=== PATIENT | female | born 1970 | race Hispanic/Latino ===

== ENCOUNTER 2017-10-22 22:41 | Emergency (ER) | payer SELFPAY ==
[2017-10-23] MEDS ORDERED: MOTRIN PO ONE (01:08)
[2017-10-23] MEDS ORDERED: ULTRAM PO ONE (04:33)
--- NOTE | 2017-10-23 04:38 | Emergency Department Report ---
ED ENT HPI - General Chief complaint: Dental/Oral Stated complaint: TOOTHACHE Time Seen by Provider: 10/23/17 04:33 Source: patient Mode of arrival: Ambulatory Limitations: No Limitations - History of Present Illness Initial comments: 47-year-old female comes in complaining of a toothache in her right upper jaw times one month and reports is getting worse. Patient denies any fever chills. She feels that she needs antibiotic. Patient has had no discharge coming from the tooth no swelling of the jaw. No past medical history. MD complaint: tooth pain -: month(s) (1) Location: tooth # (3) Severity scale (0 -10): 10 Quality: stabbing, aching Consistency: constant Improves with: none Worsens with: eating Context- Dental: poor dental care Associated Symptoms: toothache. denies: fever, cough, gum swelling, pain with swallowing, sore throat - Related Data Previous Rx's Medication Instructions Recorded Last Taken Type Clindamycin [Clindamycin CAP] 300 mg PO Q8H #30 cap 10/23/17 Unknown Rx Ibuprofen [Motrin 800 MG tab] 800 mg PO Q8HR PRN #30 tablet 10/23/17 Unknown Rx traMADol [Ultram 50 MG tab] 50 mg PO Q6HR PRN #12 tablet 10/23/17 Unknown Rx Allergies Allergy/AdvReac Type Severity Reaction Status Date / Time Penicillins Allergy Hives Verified 10/23/17 01:07 ED Dental HPI - General Chief complaint: Dental/Oral Stated complaint: TOOTHACHE Time Seen by Provider: 10/23/17 04:33 Source: patient Mode of arrival: Ambulatory Limitations: No Limitations - Related Data Previous Rx's Medication Instructions Recorded Last Taken Type Clindamycin [Clindamycin CAP] 300 mg PO Q8H #30 cap 10/23/17 Unknown Rx Ibuprofen [Motrin 800 MG tab] 800 mg PO Q8HR PRN #30 tablet 10/23/17 Unknown Rx traMADol [Ultram 50 MG tab] 50 mg PO Q6HR PRN #12 tablet 10/23/17 Unknown Rx Allergies Allergy/AdvReac Type Severity Reaction Status Date / Time Penicillins Allergy Hives Verified 10/23/17 01:07 ED Review of Systems ROS: Stated complaint: TOOTHACHE Other details as noted in HPI ENT: dental pain ED Past Medical Hx - Past Medical History Previous Medical History?: No - Surgical History Past Surgical History?: Yes Additional Surgical History: Tonsilectomy. Tubal Ligation - Social History Smoking Status: Current Every Day Smoker Substance Use Type: None - Medications Home Medications: Home Medications Medication Instructions Recorded Confirmed Last Taken Type Clindamycin [Clindamycin CAP] 300 mg PO Q8H #30 cap 10/23/17 Unknown Rx Ibuprofen [Motrin 800 MG tab] 800 mg PO Q8HR PRN #30 tablet 10/23/17 Unknown Rx traMADol [Ultram 50 MG tab] 50 mg PO Q6HR PRN #12 tablet 10/23/17 Unknown Rx ED Physical Exam - General Limitations: No Limitations General appearance: alert, in no apparent distress - Head Head exam: Present: atraumatic, normocephalic - ENT ENT exam: Present: mucous membranes moist - Expanded ENT Exam Expanded Teeth exam: Present: dental tenderness # (3) ED Course Vital Signs 10/22/17 23:51 Temperature 97.9 F Pulse Rate 60 Respiratory 18 Rate Blood Pressure 138/82 O2 Sat by Pulse 99 Oximetry Critical care attestation.: If time is entered above; I have spent that time in minutes in the direct care of this critically ill patient, excluding procedure time. ED Disposition Clinical Impression: Toothache Disposition: [id number] TO HOME OR SELFCARE Is pt being admited?: No Does the pt Need Aspirin: No Condition: Stable Instructions: Toothache (ED) Additional Instructions: Complete antibiotics as prescribed. Pain medication as needed. Please follow up with a dentist I have given the several handouts. Prescriptions: Clindamycin [Clindamycin CAP] 300 mg PO Q8H #30 cap Ibuprofen [Motrin 800 MG tab] 800 mg PO Q8HR PRN #30 tablet PRN Reason: Pain , Severe (7-10) traMADol [Ultram 50 MG tab] 50 mg PO Q6HR PRN #12 tablet PRN Reason: Pain , Severe (7-10) Referrals: PRIMARY CARE,MD [Primary Care Provider] - 3-5 Days [facility] [Outside] - 3-5 Days [facility] [Outside] - 3-5 Days Forms: Work/School Release Form(ED)
[2017-10-23 05:23] VITALS: BP 136/80
== END 2017-10-23 04:50 | disposition home or self-care (01) ==
LOC: ED 22:41
DX: K08.89 Other specified disorders of teeth and supporting structures (principal); F17.200 Nicotine dependence, unspecified, uncomplicated; Z90.49 Acquired absence of other specified parts of digestive tract; Z98.51 Tubal ligation status; Z88.0 Allergy status to penicillin
CPT/HCPCS: 99282

== ENCOUNTER 2018-01-02 23:46 | Inpatient (IN) | payer OTHER ==
[2018-01-03 00:23] LABS: Basophils # (Auto) 0.1 K/mm3 (0.0-0.1); Basophils % (Auto) 0.7 % (0.0-1.8); Eosinophils % (Auto) 0.1 % (0.0-4.3); Hematocrit 45.6 % (30.3-42.9); Hemoglobin 15.9 gm/dl (10.1-14.3); Lymphocytes # (Auto) 1.3 K/mm3 (1.2-5.4); Lymphocytes % (Auto) 10.5 % (13.4-35.0); Mean Corpuscular HGB Conc 35 % (30-34); Mean Corpuscular Hemoglobin 31 pg (28-32); Mean Corpuscular Volume 90 fl (79-97); Monocytes # (Auto) 0.4 K/mm3 (0.0-0.8); Monocytes % (Auto) 2.9 % (0.0-7.3); Platelet Count 200 K/mm3 (140-440); Red Blood Count 5.08 M/mm3 (3.65-5.03); Red Cell Distribution Width 13.6 % (13.2-15.2)
[2018-01-03 00:45] LABS: Alanine Aminotransferase 25 units/L (7-56); Albumin 4.4 g/dL (3.9-5); BUN/Creatinine Ratio 19; Blood Urea Nitrogen 13 mg/dL (7-17); Calcium 9.5 mg/dL (8.4-10.2); Hemolysis Index 7
[2018-01-03 01:21] LABS: Bilirubin,Urine NEG (Negative); Blood,Urine NEG (Negative); Color,Urine Yellow (Yellow); Mucus,Urine 1+ /HPF; Urobilinogen,Urine < 2.0 mg/dL (<2.0)
--- NOTE | 2018-01-03 01:42 | Emergency Department Report ---
ED Abdominal Pain HPI - General Chief Complaint: Abdominal Pain Stated Complaint: N/V ABD PAIN Time Seen by Provider: 01/03/18 01:37 Source: patient, family Mode of arrival: Ambulatory Limitations: No Limitations - History of Present Illness Initial Comments: Patient here report abdominal pain with nausea and vomiting that started today. She said the pain is located around her navel and its 10 out of 10 and achy. She reports chilled with that she did not take her temperature. Last menstrual period was 10/16/2017. Last bowel movement was this morning and she said that was normal. She denies any alcohol use. Denies eating any food that abnormal. She has a history of tonsillectomy and tubal ligation. Denies any vaginal bleeding or discharge. Denies any back pain, shortness of breath or chest pain. MD Complaint: abdominal pain -: This morning Location: periumbilical Radiation: none Migration to: no migration Severity: severe Severity scale (0 -10): 10 Quality: cramping, stabbing Consistency: constant Improves With: nothing Worsens With: nothing Context: other (unknown) Associated Symptoms: nausea, vomiting, chills. denies: diarrhea, fever, constipation, dysuria, hematemesis, hematochezia, melena, hematuria, anorexia, syncope Treatments Prior to Arrival: other (none) - Related Data LMP Date: 10/16/17 Previous Rx's Medication Instructions Recorded Last Taken Type Clindamycin [Clindamycin CAP] 300 mg PO Q8H #30 cap 10/23/17 Unknown Rx Ibuprofen [Motrin 800 MG tab] 800 mg PO Q8HR PRN #30 tablet 10/23/17 Unknown Rx traMADol [Ultram 50 MG tab] 50 mg PO Q6HR PRN #12 tablet 10/23/17 Unknown Rx Dicyclomine [Bentyl] 40 mg PO QID 3 Days #12 tablet 01/03/18 Unknown Rx Famotidine [Pepcid] 40 mg PO QDAY 10 Days #10 tablet 01/03/18 Unknown Rx Ondansetron [Zofran Odt] 4 mg PO Q6H PRN #20 tab.rapdis 01/03/18 Unknown Rx Allergies Allergy/AdvReac Type Severity Reaction Status Date / Time Penicillins Allergy Hives Verified 10/23/17 01:07 ED Review of Systems ROS: Stated complaint: N/V ABD PAIN Other details as noted in HPI Constitutional: chills. denies: fever Eyes: denies: eye pain, eye discharge, vision change ENT: denies: ear pain, throat pain, congestion Respiratory: denies: cough, shortness of breath, SOB with exertion, SOB at rest , wheezing Cardiovascular: denies: chest pain, palpitations, dyspnea on exertion, edema, syncope Gastrointestinal: abdominal pain, nausea, vomiting. denies: diarrhea, constipation, hematemesis, melena, hematochezia Genitourinary: abnormal menses. denies: urgency, dysuria, frequency, hematuria , discharge, dyspareunia Musculoskeletal: denies: back pain, joint swelling, arthralgia, myalgia Skin: denies: rash, lesions Neurological: denies: headache, weakness, paresthesias, abnormal gait, vertigo Hematological/Lymphatic: denies: easy bleeding, easy bruising ED Past Medical Hx - Past Medical History Previous Medical History?: No - Surgical History Past Surgical History?: Yes Additional Surgical History: Tonsilectomy. Tubal Ligation - Social History Smoking Status: Current Every Day Smoker Substance Use Type: None - Medications Home Medications: Home Medications Medication Instructions Recorded Confirmed Last Taken Type Clindamycin [Clindamycin CAP] 300 mg PO Q8H #30 cap 10/23/17 Unknown Rx Ibuprofen [Motrin 800 MG tab] 800 mg PO Q8HR PRN #30 tablet 10/23/17 Unknown Rx traMADol [Ultram 50 MG tab] 50 mg PO Q6HR PRN #12 tablet 10/23/17 Unknown Rx Dicyclomine [Bentyl] 40 mg PO QID 3 Days #12 tablet 01/03/18 Unknown Rx Famotidine [Pepcid] 40 mg PO QDAY 10 Days #10 tablet 01/03/18 Unknown Rx Ondansetron [Zofran Odt] 4 mg PO Q6H PRN #20 tab.rapdis 01/03/18 Unknown Rx ED Physical Exam - General Limitations: No Limitations General appearance: alert, in no apparent distress - Head Head exam: Present: atraumatic, normocephalic, normal inspection - Eye Eye exam: Present: normal appearance, PERRL, EOMI Pupils: Present: normal accommodation - ENT ENT exam: Present: normal orophraynx, mucous membranes dry, TM's normal bilaterally, normal external ear exam. Absent: normal exam - Neck Neck exam: Present: normal inspection, full ROM, other (no C-spine tenderness). Absent: tenderness, lymphadenopathy - Respiratory Respiratory exam: Present: normal lung sounds bilaterally. Absent: respiratory distress, chest wall tenderness - Cardiovascular Cardiovascular Exam: Present: regular rate, normal rhythm, normal heart sounds. Absent: systolic murmur, diastolic murmur - GI/Abdominal GI/Abdominal exam: Present: soft, tenderness (periumbilical area), guarding, normal bowel sounds. Absent: distended, rebound, rigid, organomegaly, mass, bruit, pulsatile mass, hernia - Extremities Exam Extremities exam: Present: normal inspection, full ROM, normal capillary refill , other (No cce. + 2 pulses in all extremities, no neurovascular compromise). Absent: tenderness, pedal edema, joint swelling, calf tenderness - Back Exam Back exam: Present: normal inspection, full ROM, other (embolus about any difficulties). Absent: tenderness, CVA tenderness (R), CVA tenderness (L), muscle spasm, paraspinal tenderness, vertebral tenderness, rash noted - Neurological Exam Neurological exam: Present: alert, oriented X3, normal gait, reflexes normal. Absent: motor sensory deficit - Psychiatric Psychiatric exam: Present: anxious - Skin Skin exam: Present: warm, dry, intact, normal color. Absent: rash ED Course Vital Signs 01/02/18 01/03/18 23:49 00:59 Temperature 99.8 F H Pulse Rate 73 60 Respiratory 20 Rate Blood Pressure 177/115 Blood Pressure 141/81 [Right] O2 Sat by Pulse 100 Oximetry - Reevaluation(s) Reevaluation #1: 01/03/18 02:51 Given Toradol 30 mg IV, normal saline 1 L IV infusion, Zofran 8 mg IV and called all 5 mg IV. She is feeling a lot better and awaiting CT scan. She was also given Maalox 30 mL by mouth and lidocaine 15 mL by mouth and she says she is feeling a lot better. She did admit later on to smoking marijuana but that she did not smoke any yesterday. She says she is social user. The room did smelling marijuana. Patient states that she had this happen once before and she just has a sensitive stomach. Her temperature and white count is elevated so will go along with CT scan of the abdomen and pelvis with IV contrast Reevaluation #2: 01/03/18 03:34 Patient is stable and she says she is feeling better. Abdominal exam without any tenderness and no guarding or rebound. Awaiting CT scan. Reevaluation #3: 01/03/18 04:[address] Grimes who was the surgeon on-call regarding patient appendicitis and gallstones. She wants patient to be admitted via hospitalist to surgical floor. Patient ordered for D5 half normal saline at 1 25 mL an hour , Levaquin and Flagyl IV. She is to get morphine and Zofran. She still has minimal tenderness to her periumbilical area. Nausea has resolved. He should updated on CT scan results of diagnosis and plan for admission and she voiced understanding. Lactic acid, blood cultures ordered Reevaluation #4: 01/03/18 04:47 Dr. Moraes currently admitted inpatient - Consultations Consultation #1: 01/03/18 04:47 Dr. Grimes ED Medical Decision Making - Lab Data Result diagrams: 01/03/18 00:07 01/03/18 00:07 Lab Results 01/03/18 01/03/18 01/03/18 Range/Units 00:07 00:07 00:07 WBC 12.7 H (4.5-11.0) K/mm3 RBC 5.08 H (3.65-5.03) M/mm3 Hgb 15.9 H (10.1-14.3) gm/dl Hct 45.6 H (30.3-42.9) % MCV 90 (79-97) fl MCH 31 (28-32) pg MCHC 35 H (30-34) % RDW 13.6 (13.2-15.2) % Plt Count 200 (140-440) K/mm3 Lymph % (Auto) 10.5 L (13.4-35.0) % [place] % (Auto) 2.9 (0.0-7.3) % Eos % (Auto) 0.1 (0.0-4.3) % Baso % (Auto) 0.7 (0.0-1.8) % Lymph # 1.3 (1.2-5.4) K/mm3 [place] # 0.4 (0.0-0.8) K/mm3 Eos # 0.0 (0.0-0.4) K/mm3 Baso # 0.1 (0.0-0.1) K/mm3 Seg Neutrophils % 85.8 H (40.0-70.0) % Seg Neutrophils # 10.9 H (1.8-7.7) K/mm3 Sodium 140 (137-145) mmol/L Potassium 3.9 (3.6-5.0) mmol/L Chloride 100.7 (98-107) mmol/L Carbon Dioxide 22 (22-30) mmol/L Anion Gap 21 mmol/L BUN 13 (7-17) mg/dL Creatinine 0.7 (0.7-1.2) mg/dL Estimated GFR > 60 ml/min BUN/Creatinine Ratio 19 % Glucose 128 H (65-100) mg/dL Calcium 9.5 (8.4-10.2) mg/dL Total Bilirubin 0.40 (0.1-1.2) mg/dL AST 20 (5-40) units/L ALT 25 (7-56) units/L Alkaline Phosphatase 61 (35-129) units/L Total Protein 7.3 (6.3-8.2) g/dL Albumin 4.4 (3.9-5) g/dL Albumin/Globulin Ratio 1.5 % HCG, Qual Negative (Negative) Urine Color (Yellow) Urine Turbidity (Clear) Urine pH (5.0-7.0) Ur Specific [place] (1.003-1.030) Urine Protein (Negative) mg/dL Urine Glucose (UA) (Negative) mg/dL Urine Ketones (Negative) mg/dL Urine Blood (Negative) Urine Nitrite (Negative) Urine Bilirubin (Negative) Urine Urobilinogen (<2.0) mg/dL Ur Leukocyte Esterase (Negative) Urine WBC (Auto) (0.0-6.0) /HPF Urine RBC (Auto) (0.0-6.0) /HPF U Epithel Cells (Auto) (0-13.0) /HPF Urine Mucus /HPF 01/03/18 Range/Units 00:39 WBC (4.5-11.0) K/mm3 RBC (3.65-5.03) M/mm3 Hgb (10.1-14.3) gm/dl Hct (30.3-42.9) % MCV (79-97) fl MCH (28-32) pg MCHC (30-34) % RDW (13.2-15.2) % Plt Count (140-440) K/mm3 Lymph % (Auto) (13.4-35.0) % [place] % (Auto) (0.0-7.3) % Eos % (Auto) (0.0-4.3) % Baso % (Auto) (0.0-1.8) % Lymph # (1.2-5.4) K/mm3 [place] # (0.0-0.8) K/mm3 Eos # (0.0-0.4) K/mm3 Baso # (0.0-0.1) K/mm3 Seg Neutrophils % (40.0-70.0) % Seg Neutrophils # (1.8-7.7) K/mm3 Sodium (137-145) mmol/L Potassium (3.6-5.0) mmol/L Chloride (98-107) mmol/L Carbon Dioxide (22-30) mmol/L Anion Gap mmol/L BUN (7-17) mg/dL Creatinine (0.7-1.2) mg/dL Estimated GFR ml/min BUN/Creatinine Ratio % Glucose (65-100) mg/dL Calcium (8.4-10.2) mg/dL Total Bilirubin (0.1-1.2) mg/dL AST (5-40) units/L ALT (7-56) units/L Alkaline Phosphatase (35-129) units/L Total Protein (6.3-8.2) g/dL Albumin (3.9-5) g/dL Albumin/Globulin Ratio % HCG, Qual (Negative) Urine Color Yellow (Yellow) Urine Turbidity Slightly-cloudy (Clear) Urine pH 8.0 H (5.0-7.0) Ur Specific [place] 1.024 (1.003-1.030) Urine Protein 100 mg/dl (Negative) mg/dL Urine Glucose (UA) Neg (Negative) mg/dL Urine Ketones 20 (Negative) mg/dL Urine Blood Neg (Negative) Urine Nitrite Neg (Negative) Urine Bilirubin Neg (Negative) Urine Urobilinogen < 2.0 (<2.0) mg/dL Ur Leukocyte Esterase Neg (Negative) Urine WBC (Auto) 2.0 (0.0-6.0) /HPF Urine RBC (Auto) 10.0 (0.0-6.0) /HPF U Epithel Cells (Auto) 2.0 (0-13.0) /HPF Urine Mucus 1+ /HPF - Radiology Data Radiology results: report reviewed CT scan of the abdomen and pelvis IV contrast positive for acute appendicitis without any abscess or perforation. Patient also has fatty liver and gallstones noted without any mention of blockages. - Medical Decision Making This is a 47-year-old female here reports nausea and vomiting and abdominal pain and here to be seen. CT scan of the abdomen and pelvis with IV contrast shows acute appendicitis without any perforation or abscess. She also has gallstones without any blockage. This was dictated by radiologist report reviewed by myself. Labs: CBC with elevated white count, CMP stable, negative and urinalysis with normal findings. Blood cultures ordered, lactic acid, type and screen and PT PTT all pending. Assessment/plan 1: Abdominal pain-better with Toradol 30 mg IV, Maalox 30 mL and lidocaine 15 mL. Morphine 4 mg IV 2: Nausea and vomiting-better with Zofran a total of 12 mg IV given in 8 and 4 mg, Haldol 5 mg IV and patient given 1 L normal saline IV bolus and started on D5 half-normal saline at 1 25 mL an hour 3: Acute appendicitis-positive and CT scan of the abdomen and pelvis. Patient to be started on Levaquin and Flagyl IV as she is allergic to penicillin 4: Gallstones-seen on CT scan without any blockage I spoke with Dr. Grimes who is the surgeon and she wants patient to be admitted by hospitalist to surgical floor and she will see her later on this morning. Dr. Moraes hospitalists admitted patient. Patient awaiting surgical bed. I spoke with patient and her family regarding and CT scan findings. Her pain and nausea is much better. Thus with her that she will need to be admitted and more than likely to have surgery to have her appendix removed. Patient is in agreement. Her vital signs are stable she was running a low-grade fever. She was running a low-grade fever Admission but stable at present. We then to go to surgical bed. - Differential Diagnosis abdominal mass, colitis, GBD, appendicitis, bowel obstruction, UTI Critical care attestation.: If time is entered above; I have spent that time in minutes in the direct care of this critically ill patient, excluding procedure time. ED Disposition Clinical Impression: Dehydration, mild, Gallstones Abdominal pain Qualifiers: Abdominal location: periumbilical Qualified Code(s): R10.33 - Periumbilical pain Nausea and vomiting Qualifiers: Vomiting type: unspecified Vomiting Intractability: non-intractable Qualified Code(s): R11.2 - Nausea with vomiting, unspecified Appendicitis, acute Qualifiers: Acute appendicitis type: unspecified acute appendicitis type Qualified Code(s) : K35.80 - Unspecified acute appendicitis Disposition: OP ADMIT IP TO THIS HOSP Is pt being admited?: Yes Does the pt Need Aspirin: No Condition: Stable Instructions: Dehydration (ED), Acute Nausea and Vomiting (ED), Abdominal Pain (ED) Additional Instructions: follow-up with a primary care doctor and if he do not have one he can follow- up at this [facility] follow-up in one day. Follow up with support merchandiser as instructed. Call tomorrow to schedule an appointment to follow up the next day. Take Bentyl for stomach upset and Pepcid and Phenergan for nausea and vomiting but please do not drive or operate heavy machinery while taking Phenergan as this medication causes drowsiness Increasing fluid intake to at least 2-3 L of water daily If his symptoms return, return to the emergency room Prescriptions: Dicyclomine [Bentyl] 40 mg PO QID 3 Days #12 tablet Famotidine [Pepcid] 40 mg PO QDAY 10 Days #10 tablet Ondansetron [Zofran Odt] 4 mg PO Q6H PRN #20 tab.rapdis PRN Reason: Nausea And Vomiting
[2018-01-03] MEDS ORDERED: ALUM-MAG HYDROX-SIMETH 200-200-20MG/5ML PO ONE (01:43)
[2018-01-03] MEDS ORDERED: ZOFRAN IV ONE ×2 (01:43→04:21)
[2018-01-03] MEDS ORDERED: TORADOL IV ONE (01:43)
[2018-01-03] MEDS ORDERED: LIDOCAINE VISCOUS 2% PO ONE (01:43)
[2018-01-03] MEDS ORDERED: VALIUM IV ONE (01:43)
[2018-01-03] MEDS ORDERED: NACL 0.9% 1000 ML 1,000 ML IV ONE (01:47)
[2018-01-03] MEDS ORDERED: HALDOL IV ONE (02:26)
--- NOTE | 2018-01-03 04:11 | Cat Scan Report ---
FINAL REPORT EXAM: CT ABDOMEN PELVIS W CON HISTORY: abdominal pain with nausea and vomiting TECHNIQUE: Helical CT scan through the abdomen and pelvis during intravenous injection of iodinated contrast. Images are reconstructed in the sagittal and coronal planes. Oral contrast was not given. PRIORS: None. FINDINGS: The lung bases are clear. There is mild thickening and edema of the wall of the appendix with mild periappendiceal inflammatory fat change. There are no abnormally dilated loops of bowel. There is diffuse low-attenuation of the liver consistent with fatty infiltration. The liver is enlarged measuring 21.5 cm in craniocaudal dimension. The pancreas, spleen and adrenal glands appear normal. There are stones in an otherwise normal-appearing gallbladder. The kidneys appear normal. Pelvic organs appear grossly normal. There is a small hiatal hernia. Otherwise, the stomach appears grossly within normal limits. The abdominal aorta has a normal diameter. The bones and subcutaneous soft tissues are unremarkable for age. IMPRESSION: 1. Findings are consistent with acute appendicitis. There is no evidence of gross perforation or abscess formation. 2. Diffuse fatty infiltration of the liver and hepatomegaly. 3. Cholelithiasis without CT evidence of acute cholecystitis. I gave a verbal report by phone to DEBI Boland at 4:08 a.m. eastern daylight time.
[2018-01-03] MEDS ORDERED: MORPHINE IV ONE (04:22)
[2018-01-03] MEDS ORDERED: LEVAQUIN 750MG/150ML 750 MG/150 ML BAG IV ONE (04:26)
[2018-01-03] MEDS ORDERED: TYLENOL PO PRN (04:59)
[2018-01-03] MEDS ORDERED: SODIUM CHLORIDE FLUSH SYRINGE 10 ML IV PRN (04:59)
--- NOTE | 2018-01-03 04:59 | History and Physical Report ---
History of Present Illness Date of examination: 01/03/18 History of present illness: 47-year-old woman with a history with no medical problems comes emergency room with complaints of abdominal pain located in the epigastric area that started yesterday. She describes the pain as a hurting pain, constant, intensity 9/10, radiating to the back, cannot identify aggravating factors, relieved with IV morphine, associated with multiple episodes of nausea and vomiting, unable to tolerate oral intake, also complaining of chills Review of systems Constitutional: no weight loss, fever Ears, eyes, nose, mouth and throat: no nasal congestion, no nasal discharge, no sinus pressure, no vision change, no red eye. Neck: No neck pain or rigidity. Cardiovascular: no chest pain, palpitations Respiratory: no cough, shortness of breath Gastrointestinal: no abdominal pain hematochezia Genitourinary : no frequency , no hematuria Musculoskeletal: no joint swelling or muscle ache Integumentary: no rash, no pruritis Neurological: no parathesias, no numbness, no focal weakness Endocrine: no cold or heat intolerance, no polyuria or polydipsia Hematologic/Lymphatic: no easy bruising, no easy bleeding, no gland swelling Allergic/Immunologic: no urticaria, no angioedema. PAST MEDICAL HISTORY: None PAST SURGICAL HISTORY: Tubal ligation SOCIAL HISTORY: No alcohol, no drugs, smokes half a day FAMILY HISTORY: Hypertension Medications and Allergies Allergies Allergy/AdvReac Type Severity Reaction Status Date / Time Penicillins Allergy Hives Verified 10/23/17 01:07 Home Medications Medication Instructions Recorded Confirmed Last Taken Type Clindamycin [Clindamycin CAP] 300 mg PO Q8H #30 cap 10/23/17 Unknown Rx Ibuprofen [Motrin 800 MG tab] 800 mg PO Q8HR PRN #30 tablet 10/23/17 Unknown Rx traMADol [Ultram 50 MG tab] 50 mg PO Q6HR PRN #12 tablet 10/23/17 Unknown Rx Dicyclomine [Bentyl] 40 mg PO QID 3 Days #12 tablet 01/03/18 Unknown Rx Famotidine [Pepcid] 40 mg PO QDAY 10 Days #10 tablet 01/03/18 Unknown Rx Ondansetron [Zofran Odt] 4 mg PO Q6H PRN #20 tab.rapdis 01/03/18 Unknown Rx Active Meds: Active Medications Dextrose/Sodium Chloride (D5/0.45ns) 1,000 mls @ 125 mls/hr IV DIRECT CAREY Levofloxacin/Dextrose (Levaquin 750mg/150ml) 750 mg in 150 mls @ 100 mls/hr IV ONCE ONE Stop: 01/03/18 05:55 Metronidazole (Flagyl 500 Mg/100 Ml) 500 mg in 100 mls @ 200 mls/hr IV ONCE ONE ; Protocol Stop: 01/03/18 05:29 Exam - Physical Exam Narrative exam: Gen. appearance: Patient lying in bed, no apparent distress HEENT: Normocephalic, atraumatic, pupils equally round and reactive to light, extraocular movement intact, and no sclericterus,. No JVD or thyromegaly or nodule,neck supple, no carotid bruit ,mucous membranes moist, no exudate or erythema Heart: S1, S2, regular rate and rhythm Lungs: Clear bilaterally, breathing comfortable Abdomen: Positive bowel sounds, tender in the mid abdomen, nondistended, no organomegaly Extremity:no edema cyanosis, clubbing Skin: no rash, dry, warm Neuro: Oriented 3, cranial nerves II-12 intact, speech is fluent, motor and sensory intact - Constitutional Vitals: Temp Pulse Resp BP Pulse Ox 99.8 F H 60 20 141/81 100 01/02/18 23:49 01/03/18 00:59 01/02/18 23:49 01/03/18 00:59 01/02/18 23:49 Results - Labs CBC & Chem 7: 01/03/18 00:07 01/03/18 00:07 Labs: Abnormal lab results 01/03/18 01/03/18 01/03/18 Range/Units 00:07 00:07 00:39 WBC 12.7 H (4.5-11.0) K/mm3 RBC 5.08 H (3.65-5.03) M/mm3 Hgb 15.9 H (10.1-14.3) gm/dl Hct 45.6 H (30.3-42.9) % MCHC 35 H (30-34) % Lymph % (Auto) 10.5 L (13.4-35.0) % Seg Neutrophils % 85.8 H (40.0-70.0) % Seg Neutrophils # 10.9 H (1.8-7.7) K/mm3 Glucose 128 H (65-100) mg/dL Urine pH 8.0 H (5.0-7.0) - Imaging and Cardiology CT scan - abdomen: report reviewed CT scan - pelvis: report reviewed Assessment and Plan Assessment Acute appendicitis Plan Admit to medicine Start IV fluid, Flagyl, Levaquin, IV morphine, nicotine patch surgery is aware of the patient DVT prophylaxis
[2018-01-03] MEDS ORDERED: FLAGYL 500 MG/100 ML 500 MG/100 ML BAG IV ONE (05:00)
[2018-01-03] MEDS ORDERED: D5/0.45NS 1,000 ML IV SCH (05:00)
[2018-01-03 05:40] LABS: INR 0.95 (0.87-1.13)
[2018-01-03 05:41] LABS: Partial Thromboplastin Time 27.2 Sec. (24.2-36.6)
[2018-01-03] MEDS ORDERED: HABITROL TD SCH (06:00)
[2018-01-03] MEDS: LOVENOX SUB-Q SCH (08:51)
[2018-01-03] MEDS: MORPHINE IV PRN ×2 (09:37→13:39)
[2018-01-03] MEDS: ZOFRAN IV PRN ×2 (09:37→13:39)
--- NOTE | 2018-01-03 10:00 | Progress Note ---
Assessment and Plan Assessment and plan: Acute appendicitis. Nurse reports patient is planned for the OR today. Surgery following. Continue IV antibiotics and pain control. DVT prophylaxis. History Interval history: No new issues overnight Hospitalist Physical - Constitutional Vitals: Temp Pulse Resp BP Pulse Ox 98.6 F 62 20 116/72 98 01/03/18 06:58 01/03/18 06:58 01/03/18 09:37 01/03/18 06:58 01/03/18 08:58 General appearance: Present: no acute distress, well-nourished - EENT Eyes: Present: PERRL, EOM intact ENT: hearing intact, clear oral mucosa, dentition normal - Neck Neck: Present: supple, normal ROM - Respiratory Respiratory effort: normal Respiratory: bilateral: CTA - Cardiovascular Rhythm: regular Heart Sounds: Present: S1 & S2. Absent: gallop, rub - Extremities Extremities: no ischemia, No edema, Full ROM - Abdominal General gastrointestinal: soft, non-tender, non-distended, normal bowel sounds - Integumentary Integumentary: Present: clear, warm, dry - Neurologic Neurologic: CNII-XII intact, moves all extremities Results - Labs CBC & Chem 7: 01/03/18 00:07 01/03/18 00:07 Labs: Laboratory Last Values WBC 12.7 K/mm3 (4.5-11.0) H 01/03/18 00:07 RBC 5.08 M/mm3 (3.65-5.03) H 01/03/18 00:07 Hgb 15.9 gm/dl (10.1-14.3) H 01/03/18 00:07 Hct 45.6 % (30.3-42.9) H 01/03/18 00:07 MCV 90 fl (79-97) 01/03/18 00:07 MCH 31 pg (28-32) 01/03/18 00:07 MCHC 35 % (30-34) H 01/03/18 00:07 RDW 13.6 % (13.2-15.2) 01/03/18 00:07 Plt Count 200 K/mm3 (140-440) 01/03/18 00:07 Lymph % (Auto) 10.5 % (13.4-35.0) L 01/03/18 00:07 Mason % (Auto) 2.9 % (0.0-7.3) 01/03/18 00:07 Eos % (Auto) 0.1 % (0.0-4.3) 01/03/18 00:07 Baso % (Auto) 0.7 % (0.0-1.8) 01/03/18 00:07 Lymph # 1.3 K/mm3 (1.2-5.4) 01/03/18 00:07 Mason # 0.4 K/mm3 (0.0-0.8) 01/03/18 00:07 Eos # 0.0 K/mm3 (0.0-0.4) 01/03/18 00:07 Baso # 0.1 K/mm3 (0.0-0.1) 01/03/18 00:07 Seg Neutrophils % 85.8 % (40.0-70.0) H 01/03/18 00:07 Seg Neutrophils # 10.9 K/mm3 (1.8-7.7) H 01/03/18 00:07 PT 13.2 Sec. (12.2-14.9) 01/03/18 04:55 INR 0.95 (0.87-1.13) 01/03/18 04:55 APTT 27.2 Sec. (24.2-36.6) 01/03/18 04:55 Sodium 140 mmol/L (137-145) 01/03/18 00:07 Potassium 3.9 mmol/L (3.6-5.0) 01/03/18 00:07 Chloride 100.7 mmol/L (98-107) 01/03/18 00:07 Carbon Dioxide 22 mmol/L (22-30) 01/03/18 00:07 Anion Gap 21 mmol/L 01/03/18 00:07 BUN 13 mg/dL (7-17) 01/03/18 00:07 Creatinine 0.7 mg/dL (0.7-1.2) 01/03/18 00:07 Estimated GFR > 60 ml/min 01/03/18 00:07 BUN/Creatinine Ratio 19 % 01/03/18 00:07 Glucose 128 mg/dL (65-100) H 01/03/18 00:07 Lactic Acid 1.00 mmol/L (0.7-2.0) 01/03/18 04:46 Calcium 9.5 mg/dL (8.4-10.2) 01/03/18 00:07 Total Bilirubin 0.40 mg/dL (0.1-1.2) 01/03/18 00:07 AST 20 units/L (5-40) 01/03/18 00:07 ALT 25 units/L (7-56) 01/03/18 00:07 Alkaline Phosphatase 61 units/L (35-129) 01/03/18 00:07 Total Protein 7.3 g/dL (6.3-8.2) 01/03/18 00:07 Albumin 4.4 g/dL (3.9-5) 01/03/18 00:07 Albumin/Globulin Ratio 1.5 % 01/03/18 00:07 HCG, Qual Negative (Negative) 01/03/18 00:07 Urine Color Yellow (Yellow) 01/03/18 00:39 Urine Turbidity Slightly-cloudy (Clear) 01/03/18 00:39 Urine pH 8.0 (5.0-7.0) H 01/03/18 00:39 Ur Specific [place] 1.024 (1.003-1.030) 01/03/18 00:39 Urine Protein 100 mg/dl mg/dL (Negative) 01/03/18 00:39 Urine Glucose (UA) Neg mg/dL (Negative) 01/03/18 00:39 Urine Ketones 20 mg/dL (Negative) 01/03/18 00:39 Urine Blood Neg (Negative) 01/03/18 00:39 Urine Nitrite Neg (Negative) 01/03/18 00:39 Urine Bilirubin Neg (Negative) 01/03/18 00:39 Urine Urobilinogen < 2.0 mg/dL (<2.0) 01/03/18 00:39 Ur Leukocyte Esterase Neg (Negative) 01/03/18 00:39 Urine WBC (Auto) 2.0 /HPF (0.0-6.0) 01/03/18 00:39 Urine RBC (Auto) 10.0 /HPF (0.0-6.0) 01/03/18 00:39 U Epithel Cells (Auto) 2.0 /HPF (0-13.0) 01/03/18 00:39 Urine Mucus 1+ /HPF 01/03/18 00:39 Blood Type B POSITIVE 01/03/18 04:55 Antibody Screen Negative 01/03/18 04:55
--- NOTE | 2018-01-03 12:31 | Anesthesia Consultation ---
Anesthesia Consult and Med Hx Date of service: 01/03/18 - Airway Anesthetic Teeth Evaluation: Good ROM Head & Neck: Adequate Mental/Hyoid Distance: Adequate Mallampati Class: Class I Intubation Access Assessment: Good - Pulmonary Exam CTA: Yes - Cardiac Exam Cardiac Exam: RRR - Pre-Operative Health Status ASA Pre-Surgery Classification: ASA2 Proposed Anesthetic Plan: General - Pre-Anesthesia Comment Pre-Anesthesia Comments: Admitted for abdominal pain and N&V. Nausea improving, last vomitting episode 01/02/18. Acute appendicitis - Pulmonary Hx Smoking: Yes - Central Nervous System Hx Psychiatric Problems: No - Other Systems Hx Cancer: No
[2018-01-03] MEDS: FLAGYL 500 MG/100 ML 500 MG/100 ML BAG IV SCH ×2 (13:39→14:30)
--- NOTE | 2018-01-03 13:47 | Consultation ---
History of Present Illness Consult date: 01/03/18 Chief complaint: abdominal pain - History of present illness History of present illness: 47 yo F with one day hx of RLQ abdominal pain radiating to the rest of her abdomen and back that started suddenly without any inciting factors. The patient ate dinner with the rest of her family and she then started experiencing sharp abdominal pain. This was followed by nausea and nonbloody/ nonbilious emesis. She states she had chills but no fever. She has had GI upset in the past but nothing as severe as the symptoms she was having when she presented to ER. No c/d. No CP, SOB. She has never had a colonoscopy. Past History Past Medical History: No medical history Past Surgical History: Other (tubal ligation) Social history: smoking (1/2 PPD cigarettes), alcohol abuse (social). denies: prescription drug abuse Family history: cancer (colon- mother) Medications and Allergies Allergies Allergy/AdvReac Type Severity Reaction Status Date / Time Penicillins Allergy Hives Verified 10/23/17 01:07 Home Medications Medication Instructions Recorded Confirmed Last Taken Type Clindamycin [Clindamycin CAP] 300 mg PO Q8H #30 cap 10/23/17 Unknown Rx Ibuprofen [Motrin 800 MG tab] 800 mg PO Q8HR PRN #30 tablet 10/23/17 Unknown Rx traMADol [Ultram 50 MG tab] 50 mg PO Q6HR PRN #12 tablet 10/23/17 Unknown Rx Dicyclomine [Bentyl] 40 mg PO QID 3 Days #12 tablet 01/03/18 Unknown Rx Famotidine [Pepcid] 40 mg PO QDAY 10 Days #10 tablet 01/03/18 Unknown Rx Ondansetron [Zofran Odt] 4 mg PO Q6H PRN #20 tab.rapdis 01/03/18 Unknown Rx Active Meds: Active Medications Acetaminophen (Tylenol) 650 mg PO Q4H PRN PRN Reason: Pain MILD(1-3)/Fever >100.5/CONDE Enoxaparin Sodium (Lovenox) 40 mg SUB-Q QDAY CAREY Last Admin: 01/03/18 08:51 Dose: 40 mg Famotidine (Pepcid) 20 mg IV PREOP NR Dextrose/Sodium Chloride (D5/0.45ns) 1,000 mls @ 125 mls/hr IV DIRECT CAREY Last Admin: 01/03/18 05:11 Dose: 125 mls/hr Levofloxacin/Dextrose (Levaquin 750mg/150ml) 750 mg in 150 mls @ 100 mls/hr IV Q24HR CAREY; Protocol Metronidazole (Flagyl 500 Mg/100 Ml) 500 mg in 100 mls @ 100 mls/hr IV Q8HR CAREY ; Protocol Last Admin: 01/03/18 13:39 Dose: 100 mls/hr Sodium Chloride (Nacl 0.9% 1000 Ml) 1,000 mls @ 42 mls/hr IV DIRECT CAREY Midazolam HCl (Versed) 2 mg IV PREOP NR Stop: 01/03/18 23:59 Morphine Sulfate (Morphine) 2 mg IV Q4H PRN PRN Reason: Pain, Moderate (4-6) Last Admin: 01/03/18 13:39 Dose: 2 mg Nicotine (Habitrol) 14 mg TD Q24H CAREY Last Admin: 01/03/18 08:50 Dose: 14 mg Ondansetron HCl (Zofran) 4 mg IV Q4H PRN PRN Reason: Nausea And Vomiting Last Admin: 01/03/18 13:39 Dose: 4 mg Sodium Chloride (Sodium Chloride Flush Syringe 10 Ml) 10 ml IV BID CAREY Sodium Chloride (Sodium Chloride Flush Syringe 10 Ml) 10 ml IV PRN PRN PRN Reason: LINE FLUSH Review of Systems All systems: negative (10 pt ROS performed and negative except for that listed in HPI) Exam Vital Signs Temp Pulse Resp BP Pulse Ox 99.8 F H 73 20 177/115 100 01/02/18 23:49 01/02/18 23:49 01/02/18 23:49 01/02/18 23:49 01/02/18 23:49 Narrative exam: Gen: AAOx3. NAD ENT: no scleral icterus or conjunctival pallor CV: S1, S2+, no m/r/g Resp; CTAB, no w/r/r Abd: soft, ND, mild TTP in RUQ and LLQ, moderate TTP in RLQ without r/r/g Ext; no c/c/e Results - Labs 01/03/18 00:07 01/03/18 00:07 Abnormal lab results 01/03/18 01/03/18 01/03/18 Range/Units 00:07 00:07 00:39 WBC 12.7 H (4.5-11.0) K/mm3 RBC 5.08 H (3.65-5.03) M/mm3 Hgb 15.9 H (10.1-14.3) gm/dl Hct 45.6 H (30.3-42.9) % MCHC 35 H (30-34) % Lymph % (Auto) 10.5 L (13.4-35.0) % Seg Neutrophils % 85.8 H (40.0-70.0) % Seg Neutrophils # 10.9 H (1.8-7.7) K/mm3 Glucose 128 H (65-100) mg/dL Urine pH 8.0 H (5.0-7.0) Diabetes panel 01/03/18 Range/Units 00:07 Sodium 140 (137-145) mmol/L Potassium 3.9 (3.6-5.0) mmol/L Chloride 100.7 (98-107) mmol/L Carbon Dioxide 22 (22-30) mmol/L BUN 13 (7-17) mg/dL Creatinine 0.7 (0.7-1.2) mg/dL Glucose 128 H (65-100) mg/dL Calcium 9.5 (8.4-10.2) mg/dL AST 20 (5-40) units/L ALT 25 (7-56) units/L Alkaline Phosphatase 61 (35-129) units/L Total Protein 7.3 (6.3-8.2) g/dL Albumin 4.4 (3.9-5) g/dL Calcium panel 01/03/18 Range/Units 00:07 Calcium 9.5 (8.4-10.2) mg/dL Albumin 4.4 (3.9-5) g/dL Pituitary panel 01/03/18 Range/Units 00:07 Sodium 140 (137-145) mmol/L Potassium 3.9 (3.6-5.0) mmol/L Chloride 100.7 (98-107) mmol/L Carbon Dioxide 22 (22-30) mmol/L BUN 13 (7-17) mg/dL Creatinine 0.7 (0.7-1.2) mg/dL Glucose 128 H (65-100) mg/dL Calcium 9.5 (8.4-10.2) mg/dL Adrenal panel 01/03/18 Range/Units 00:07 Sodium 140 (137-145) mmol/L Potassium 3.9 (3.6-5.0) mmol/L Chloride 100.7 (98-107) mmol/L Carbon Dioxide 22 (22-30) mmol/L BUN 13 (7-17) mg/dL Creatinine 0.7 (0.7-1.2) mg/dL Glucose 128 H (65-100) mg/dL Calcium 9.5 (8.4-10.2) mg/dL Total Bilirubin 0.40 (0.1-1.2) mg/dL AST 20 (5-40) units/L ALT 25 (7-56) units/L Alkaline Phosphatase 61 (35-129) units/L Total Protein 7.3 (6.3-8.2) g/dL Albumin 4.4 (3.9-5) g/dL - Imaging CT scan - abdomen: report reviewed, image reviewed CT scan - pelvis: report reviewed, image reviewed Assessment and Plan 47 yo F with acute appendicitis Plan: 1. admitted to hospitalist service 2. NPO 3. IVF 4. IV abx - levaquin/flagyl 5. DVT ppx 6. prn pain control 7. OR today for appendectomy. All risks, benefits, and alternatives to surgery were discussed with patient along with post op care. All questions answered and consent obtained. Thank you for this consultation, please call with questions or concerns.
[2018-01-03] MEDS ORDERED: PEPCID IV NR (14:00)
[2018-01-03] MEDS ORDERED: MARCAINE 0.25% INFILTRATI ONE ×2 (14:23→20:28)
[2018-01-03] MEDS: VERSED IV NR ×2 (14:25→16:45)
[2018-01-03] MEDS: NACL 0.9% 1000 ML 1,000 ML IV SCH (14:25)
[2018-01-03] MEDS ORDERED: XYLOCAINE MPF 2% ONE (14:29)
[2018-01-03] MEDS ORDERED: ZOFRAN ONE (14:29)
[2018-01-03] MEDS ORDERED: DECADRON ONE (14:29)
[2018-01-03] MEDS ORDERED: DIPRIVAN 10 MG/ML IV ONE (14:29)
[2018-01-03] MEDS ORDERED: ZEMURON IV ONE (14:30)
[2018-01-03] MEDS ORDERED: DILAUDID ONE (14:34)
[2018-01-03] MEDS: DILAUDID IV SCH ×3 (16:45→21:48)
--- NOTE | 2018-01-03 17:22 | Anesthesia Day of Surgery ---
Anesthesia Day of Surgery - Day of Surgery Patient Examined: Yes Patient H&P Reviewed: Yes Patient is NPO: Yes
[2018-01-03] MEDS ORDERED: PERCOCET 5/325 PO PRN (21:35)
[2018-01-03] MEDS ORDERED: ROBINUL ONE (21:36)
[2018-01-03] MEDS ORDERED: BLOXIVERZ ONE (21:36)
[2018-01-03] MEDS ORDERED: NACL 0.9% 1000 ML 1,000 ML ONE (21:37)
--- NOTE | 2018-01-03 21:41 | Operative Report ---
Operative Report Operative Report: Date of operation: 01/03/18 Preoperative diagnosis: acute appendicitis Postoperative diagnosis: Acute appendicitis Procedure performed: Laparoscopic appendectomy Surgeon: Nanci Grimes DO Anesthesia: GETAdelso Findings: Short, thickened, inflamed appendix EBL:<15cc Specimen: appendix Disposition/Condition: stable to PACU HPI and indication: 47-year-old female presented to ER with RLQ pain x24 hours, nausea, vomiting. She was found to have a mildly elevated white blood cell count and acute appendicitis on CT scan. On physical exam she had focal tenderness in the right lower quadrant. An appendectomy was recommended and all risks, benefits, alternatives to laparoscopic appendectomy were discussed with the patient. Questions were answered. Consent was obtained. Procedure in detail: Patient was identified in the preop area and taken back to the OR and placed on the OR table in supine position. After anesthesia was induced a child catheter was steriley placed by the circulating nurse. A time out was performed. Local anesthetic 0.25% Marcaine was infilitrated into all skin incision sites. A supraumbilical incision was made and veress needle inserted. Due to the patient's body habitus, the Veress needle did not traverse the posterior fascia. An OG tube was placed by anesthesia. Then a stab incision was made in the left upper quadrant Bella's point through which the Veress needle was inserted. The positioning of the veress needle was confirmed using the saline drop test. The abdomen was then insufflated to 15mmHg. a 5 mm Optiview trocar was then placed in the supraumbilical incision. The abdomen was inspected and the Veress needle was visualized. There was no underlying injury and the trajectory of the Veress needle and therefore this was removed. The remainder of the abdomen was then inspected and there was no underlying injury to the abdominal contents. A 5mm trocar suprapubic and a 12 mm LLQ trocar were placed under direct visualization. The appendix was visualized and noted to be thickened, short, inflamed. It was loosely adhesed to the small bowel and lateral abdominal wall. These adhesions were taken down bluntly with great care using the Harmonic scalpel. The base of the appendix was identified. The mesentery of the appendix was ligated using the harmonic scalpel. The base of the appendix was transected using an ethicon flex stapler 45mm white load. The appendix was placed into an endocatch bag and removed via the 12 mm port. This was passed off the table as specimen. The staple line and mesentery were then inspected and no bleeding visualized from the mesentery. A 10 mm clip was placed on a pinpoint area of bleeding from the staple line. This area was irrigated and hemostasis was ensured. The 12 mm port fascia was closed using a single interrupted 0 Vicryl suture using the Fercho Arredondo device. The ports were removed under direct visualization and the abdomen desufflated. The remaining ports are removed under direct visualization. All skin incisions were closed using 4-0 monocryl subcuticular stitches and skin glue. At the end of the case, all sponge, instrument, sharp counts were correct x2. The patient was awoken from anesthesia, child catheter removed, and taken to PACU in stable condition.
[2018-01-04] MEDS: DILAUDID IV SCH (00:12)
[2018-01-04] MEDS: MORPHINE IV PRN ×2 (04:44→09:11)
[2018-01-04 05:22] LABS: Hematocrit 40.1 % (30.3-42.9); Hemoglobin 13.5 gm/dl (10.1-14.3); Mean Corpuscular HGB Conc 34 % (30-34); Mean Corpuscular Hemoglobin 31 pg (28-32); Mean Corpuscular Volume 92 fl (79-97); Platelet Count 161 K/mm3 (140-440); Red Blood Count 4.35 M/mm3 (3.65-5.03); Red Cell Distribution Width 13.6 % (13.2-15.2)
[2018-01-04 05:47] LABS: BUN/Creatinine Ratio 18; Blood Urea Nitrogen 11 mg/dL (7-17); Calcium 8.1 mg/dL (8.4-10.2); Hemolysis Index 3
[2018-01-04 06:17] LABS: Basophils % (Manual) 0 % (0.0-1.8); Eosinophils % (Manual) 0 % (0.0-4.3); Monocytes % (Manual) 0 % (0.0-7.3); Platelet Estimate Consistent w Auto; Total Cells Counted 100
[2018-01-04] MEDS: SODIUM CHLORIDE FLUSH SYRINGE 10 ML IV SCH ×2 (07:41→09:14)
[2018-01-04] MEDS: NACL 0.9% 1000 ML 1,000 ML IV SCH (09:21)
[2018-01-04] MEDS: LOVENOX SUB-Q SCH (09:29)
[2018-01-04] MEDS ORDERED: LEVAQUIN 750MG/150ML 750 MG/150 ML BAG IV SCH (10:00)
--- NOTE | 2018-01-04 11:32 | Discharge Summary ---
<LD LINTON - Last Filed: 01/04/18 12:04> Providers - Providers Date of Admission: 01/03/18 05:20 Date of discharge: 01/04/18 Attending physician: LD LINTON 01/03/18 04:59 Consult to Physician [CONS] Urgent Comment: Consulting Provider: SHASHANK MANUEL Physician Instructions: Reason For Exam: appendicitis Primary care physician: [facility] Hospitalization Condition: Fair Disposition: DC-01 TO HOME OR SELFCARE Core Measure Documentation - Palliative Care Palliative Care/ Comfort Measures: Not Applicable - Core Measures Any of the following diagnoses?: none Exam - Constitutional Vitals: Temp Pulse Resp BP Pulse Ox 97.4 F L 63 20 137/74 96 01/04/18 08:00 01/04/18 08:00 01/04/18 09:11 01/04/18 08:00 01/04/18 07:41 Plan Diet: low fat, low cholesterol, other (GI soft diet) Additional Instructions: 1.Follow up with PCP or [facility] in 1 week. 2.Follow up with Dr. Manuel in 2 weeks Follow up with: SHASHANK MANUEL DO [Staff Physician] - 14 Days PRIMARY CARE, [Primary Care Provider] - 3-5 Days <SHASHANK MANUEL - Last Filed: 01/04/18 13:40> Providers - Providers Date of Admission: 01/03/18 05:20 Attending physician: LD LINTON 01/03/18 04:59 Consult to Physician [CONS] Urgent Comment: Consulting Provider: SHASHANK MANUEL Physician Instructions: Reason For Exam: appendicitis Primary care physician: [facility] Exam - Constitutional Vitals: Temp Pulse Resp BP Pulse Ox 97.4 F L 63 20 137/74 96 01/04/18 08:00 01/04/18 08:00 01/04/18 09:11 01/04/18 08:00 01/04/18 07:41 Plan Activity: other (avoid heavy lifting for the next [address] if taking prescription pain medication) Wound: open to air (may shower with soap and water, pat incisions dry, do not scrub. Do not submerge incisions in bath/hottubs/pools until healed.)
[2018-01-04 14:13] VITALS: BP 143/77
== END 2018-01-04 13:15 | disposition home or self-care (01) | DRG 343 ==
LOC: ED 23:46 → 3B-SURG 01-03 05:20
PROVIDERS: ADMIT Internal Medicine; ATTEND Internal Medicine
PROC: 0DTJ4ZZ Resection of Appendix, Percutaneous Endoscopic Approach (ICD-10-PCS; principal; 2018-01-03)
DX: K35.80 Unspecified acute appendicitis (principal); F17.200 Nicotine dependence, unspecified, uncomplicated; E86.0 Dehydration; K80.80 Other cholelithiasis without obstruction; F10.10 Alcohol abuse, uncomplicated; Z88.0 Allergy status to penicillin; Z98.51 Tubal ligation status; Z79.899 Other long term (current) drug therapy; Z82.49 Family history of ischemic heart disease and other diseases of the circulatory system; Z80.8 Family history of malignant neoplasm of other organs or systems
CPT/HCPCS: 36415; 74177; 80048; 80053; 81001; 82140; 84703; 85007; 85025; 85610; 85730; 86850; 86900; 86901; 87040; 88304; 96361; 96374; 96375; 99285; J1100; J1170; J1630; J1650; J1885; J1956; J2250; J2270; J2405; J2704; J2710; J7030; Q9967